=== PATIENT | female | born 1990 | race Caucasian/White ===

== ENCOUNTER 2017-03-28 11:50 | Inpatient (IN) | payer MEDICAID ==
[~2017-03-28] VITALS: Ht 167.6 cm; Wt 68.9 kg
[2017-03-28 12:30] LABS: BILIRUBIN,URINE NEGATIVE (NEGATIVE); BLOOD, URINE 2+ (NEGATIVE); COLOR,URINE YELLOW (YELLOW); LEUKOCYTE ESTERASE ,URINE NEGATIVE (NEGATIVE); NITRITE, URINE NEGATIVE (NEGATIVE); UGLUCOSE NEGATIVE (NEGATIVE)
[2017-03-28 12:56] LABS: APPEARANCE,URINE SLIGHTLY HAZY (CLEAR); RBC,URINE 3-10 (FEW) /HPF (0-5); WBC,URINE 0-5 (RARE) /HPF (0-5)
[2017-03-28 19:38] VITALS: BP 116/64
[2017-03-28] MEDS: LACTATED RINGERS 1,000 ML IV SCH (21:00)
[2017-03-28 21:03] LABS: ALBUMIN 2.6 g/dL (3.4-5.0); ANION GAP 15.2 (8-16); CARBON DIOXIDE 24.4 mmol/L (21-32); CREATININE 0.7 mg/dL (0.6-1.3); POTASSIUM 3.6 mmol/L (3.5-5.1); TOTAL BILIRUBIN 0.5 mg/dL (0.0-1.0)
[2017-03-28] MEDS ORDERED: IBUPROFEN 600 MG TAB PO PRN (21:30)
[2017-03-28] MEDS ORDERED: IBUPROFEN 600 MG TAB ONE (21:38)
[2017-03-29] MEDS: LACTATED RINGERS 1,000 ML IV SCH ×3 (02:00→13:21)
[2017-03-29] MEDS ORDERED: IBUPROFEN 600 MG TAB PO PRN (05:45)
--- NOTE | 2017-03-29 09:09 | NUR ---
PATIENT HAS BEEN SCREENED AND CATEGORIZED LOW NUTRITION RISK. PATIENT WILL BE SEEN WITHIN 7 DAYS OF ADMISSION. 04/03/[address]
[2017-03-29] MEDS ORDERED: AMPICILLIN 2,000 MG in NACL 0.9% 100 ML IV SCH (14:55)
[2017-03-29] MEDS ORDERED: AMPICILLIN 2,000 MG VIAL ONE (15:34)
[2017-03-29 16:59] LABS: APPEARANCE,URINE CLEAR (CLEAR); BILIRUBIN,URINE NEGATIVE (NEGATIVE); BLOOD, URINE 3+ (NEGATIVE); COLOR,URINE YELLOW (YELLOW); LEUKOCYTE ESTERASE ,URINE NEGATIVE (NEGATIVE); NITRITE, URINE NEGATIVE (NEGATIVE); PH,URINE 7.5 (5.0-9.0); UGLUCOSE NEGATIVE (NEGATIVE)
[2017-03-29 17:21] LABS: RBC,URINE 20-50 /HPF (0-5); WBC,URINE 0-5 (RARE) /HPF (0-5)
[2017-03-29] MEDS ORDERED: AMPICILLIN 1,000 MG VIAL ONE ×2 (19:47→23:30)
[2017-03-30] MEDS ORDERED: AMPICILLIN 1,000 MG VIAL ONE ×5 (03:59→20:32)
[2017-03-30] MEDS: AMPICILLIN 1,000 MG in NACL 0.9% 50 ML IV SCH ×5 (08:09→20:45)
[2017-03-30] MEDS: LACTATED RINGERS 1,000 ML IV SCH ×2 (08:16→16:49)
[2017-03-31] MEDS: AMPICILLIN 1,000 MG in NACL 0.9% 50 ML IV SCH ×4 (00:45→20:45)
[2017-03-31] MEDS ORDERED: AMPICILLIN 1,000 MG VIAL ONE ×6 (00:47→20:46)
[2017-03-31] MEDS: LACTATED RINGERS 1,000 ML IV SCH ×2 (00:54→10:15)
[2017-03-31] MEDS ORDERED: SODIUM 10 ML VIAL ONE (20:47)
[2017-04-01] MEDS ORDERED: AMPICILLIN 1,000 MG VIAL ONE ×4 (00:41→13:27)
[2017-04-01] MEDS: AMPICILLIN 1,000 MG in NACL 0.9% 50 ML IV SCH ×2 (08:54→13:33)
== END 2017-04-01 16:10 | disposition home or self-care (01) | DRG 566 ==
LOC: MLD 11:50 → MFCC 17:27 → OBSVTOIN 03-29 15:59
PROVIDERS: ADMIT Obstetrics & Gynecology; ATTEND Obstetrics & Gynecology
PROC: 0T9B70Z Drainage of Bladder with Drainage Device, Via Natural or Artificial Opening (ICD-10-PCS; principal; 2017-03-28)
DX: O26.892 Other specified pregnancy related conditions, second trimester (principal); N20.1 Calculus of ureter; O23.32 Infections of other parts of urinary tract in pregnancy, second trimester; O21.9 Vomiting of pregnancy, unspecified; R19.7 Diarrhea, unspecified; Z3A.24 24 weeks gestation of pregnancy
CPT/HCPCS: G0378 ×28; 36415; 51702; 76770; 76805; 80053; 81001; 96360; 96361; J0290; J7120; Q0092

== ENCOUNTER 2017-07-08 14:35 | Observation (INO) | payer MEDICAID ==
[~2017-07-08] VITALS: Ht 167.6 cm; Wt 77.6 kg
[2017-07-08 17:13] VITALS: BP 106/63
== END 2017-07-08 20:30 | disposition home or self-care (01) ==
LOC: MLD 14:35
PROVIDERS: ADMIT Obstetrics & Gynecology; ATTEND Obstetrics & Gynecology
DX: O26.893 Other specified pregnancy related conditions, third trimester (principal); R10.9 Unspecified abdominal pain; Z3A.34 34 weeks gestation of pregnancy
CPT/HCPCS: 59025; 76805; G0378; Q0092

== ENCOUNTER 2017-07-15 14:00 | Inpatient (IN) | payer MEDICAID ==
[~2017-07-15] VITALS: Ht 160 cm; Wt 78.0 kg
[2017-07-15] MEDS ORDERED: PREN-380 PO (14:55)
[2017-07-15] MEDS ORDERED: LACTATED RINGERS 1,000 ML IV SCH (14:56)
[2017-07-15] MEDS ORDERED: PROMETHAZINE 25 MG/ML VIAL IVP PRN (15:00)
[2017-07-15] MEDS ORDERED: NALBUPHINE HYDROCHLORIDE 10 MG/ML VIAL IVP PRN (15:00)
[2017-07-15] MEDS ORDERED: METHYLERGONOVINE 0.2 MG/ML AMP IM PRN (15:00)
[2017-07-15] MEDS ORDERED: CARBOPROST 250 MCG/ML AMP IM PRN (15:00)
[2017-07-15] MEDS ORDERED: OXYTOCIN 10 UNITS/ML VIAL IM SCH (15:30)
[2017-07-15 16:19] LABS: BASOPHILS # (AUTO) 0.1 K/uL (0.00-0.22); HEMOGLOBIN 13.2 g/dL (12.0-16.0); LYMPHOCYTES # (AUTO) 2.5 K/uL (2.5-16.5)
[2017-07-15 16:22] LABS: BASOPHILS % (AUTO) 0.4 % (0.0-2.0); EOSINOPHILS # (AUTO) 0.2 K/uL (0-0.4); EOSINOPHILS % (AUTO) 1.2 % (0.0-4.0); LYMPHOCYTES % (AUTO) 20.2 % (20.5-51.1); MEAN CORPUSCULAR HEMOGLOBIN 31 pg (27-31); MEAN CORPUSCULAR HGB CONC 33 g/dL (33-37); MEAN CORPUSCULAR VOLUME 94.2 fL (80-94); MONOCYTES # (AUTO) 0.8 K/uL (0.8-1.0); MONOCYTES % (AUTO) 6.2 % (1.7-9.3); NEUTROPHILS # (AUTO) 8.9 K/uL (1.8-7.7); PLATELET COUNT (AUTO) 185 K/uL (140-450); RED BLOOD CELL COUNT(AUTO) 4.25 MIL/uL (4.20-5.40); RED CELL DISTRIBUTION WIDTH 13.8 % (11.6-13.7); WHITE BLOOD COUNT (AUTO) 12.4 K/uL (4.8-10.8)
[2017-07-15 16:33] LABS: ALBUMIN 2.7 g/dL (3.4-5.0); ANION GAP 13.5 (8-16); CREATININE 0.6 mg/dL (0.6-1.3); POTASSIUM 3.5 mmol/L (3.5-5.1); TOTAL BILIRUBIN 0.5 mg/dL (0.0-1.0)
[2017-07-15 19:28] LABS: APPEARANCE,URINE CLEAR (CLEAR); BILIRUBIN,URINE NEGATIVE (NEGATIVE); BLOOD, URINE NEGATIVE (NEGATIVE); COLOR,URINE YELLOW (YELLOW); LEUKOCYTE ESTERASE ,URINE NEGATIVE (NEGATIVE); NITRITE, URINE NEGATIVE (NEGATIVE); PH,URINE 6.5 (5.0-9.0); UGLUCOSE NEGATIVE (NEGATIVE)
[2017-07-15] MEDS ORDERED: MISOPROSTOL 25 MCG TAB VG PRN (20:00)
[2017-07-15] MEDS ORDERED: OXYTOCIN 20 UNITS in LACTATED RINGERS 1,000 ML IV SCH (21:01)
[2017-07-15] MEDS ORDERED: NALBUPHINE 10 MG/ML AMP IVP PRN (21:05)
[2017-07-15] MEDS ORDERED: MISOPROSTOL 25 MCG TAB VG ONE (21:05)
[2017-07-15] MEDS ORDERED: MISOPROSTOL 25 MCG TAB ONE (21:09)
[2017-07-16] MEDS ORDERED: NALBUPHINE 10 MG/ML AMP ONE (03:53)
[2017-07-16] MEDS ORDERED: PROMETHAZINE 25 MG/ML VIAL ONE (03:53)
[2017-07-16] MEDS ORDERED: BUPIVACAINE 0.125%/NS PREMIX 250 ML ONE (05:22)
[2017-07-16] MEDS ORDERED: OXYTOCIN 20 UNITS/LR PREMIX 1,000 ML IV ONE (06:00)
[2017-07-16] MEDS ORDERED: OXYTOCIN 10 UNITS/ML VIAL ONE ×2 (06:02→07:41)
[2017-07-16] MEDS ORDERED: TERBUTALINE 1 MG/ML VIAL SUBQ ONE (07:41)
[2017-07-16] MEDS ORDERED: OXYTOCIN 20 UNITS in LACTATED RINGERS 1,000 ML IV SCH ×2 (11:18→21:01)
[2017-07-16] MEDS ORDERED: IBUPROFEN 600 MG TAB PO PRN (11:20)
[2017-07-16] MEDS ORDERED: MEASLES, MUMPS, AND RUBELLA 1 VIAL SQVAC PRN (11:20)
[2017-07-16] MEDS ORDERED: ACETAMINOPHEN 325 MG TAB PO PRN (11:20)
[2017-07-16] MEDS ORDERED: BISACODYL 5 MG TABEC PO PRN (11:20)
[2017-07-16] MEDS ORDERED: BENZOCAINE/MENTHOL 20%-0.5% 60 GM CAN TP PRN (11:20)
--- NOTE | 2017-07-17 06:36 | NUR ---
PATIENT HAS BEEN SCREENED AND CATEGORIZED LOW NUTRITION RISK. PATIENT WILL BE SEEN WITHIN 7 DAYS OF ADMISSION. 07/22/17 AMANDA PINEDO MS, RDN
[2017-07-17 07:35] LABS: BASOPHILS % (AUTO) 0.4 % (0.0-2.0); EOSINOPHILS # (AUTO) 0.1 K/uL (0-0.4); EOSINOPHILS % (AUTO) 0.5 % (0.0-4.0); HEMATOCRIT 35.6 % (36-48); HEMOGLOBIN 11.8 g/dL (12.0-16.0); LYMPHOCYTES # (AUTO) 2.5 K/uL (2.5-16.5); LYMPHOCYTES % (AUTO) 19.4 % (20.5-51.1); MEAN CORPUSCULAR HEMOGLOBIN 31 pg (27-31); MEAN CORPUSCULAR HGB CONC 33 g/dL (33-37); MEAN CORPUSCULAR VOLUME 93.7 fL (80-94); MONOCYTES # (AUTO) 0.8 K/uL (0.8-1.0); NEUTROPHILS # (AUTO) 9.4 K/uL (1.8-7.7); NEUTROPHILS % (AUTO) 73.7 % (42.2-75.2); PLATELET COUNT (AUTO) 141 K/uL (140-450); RED CELL DISTRIBUTION WIDTH 13.7 % (11.6-13.7); WHITE BLOOD COUNT (AUTO) 12.8 K/uL (4.8-10.8)
== END 2017-07-18 15:30 | disposition home or self-care (01) | DRG 560 ==
LOC: MLD 14:00 → MFCC 07-16 13:20
PROVIDERS: ADMIT Obstetrics & Gynecology; ATTEND Obstetrics & Gynecology
PROC: 10E0XZZ Delivery of Products of Conception, External Approach (ICD-10-PCS; principal; 2017-07-16)
PROC: 0KQM0ZZ Repair Perineum Muscle, Open Approach (ICD-10-PCS; 2017-07-16)
PROC: 3E0P7VZ Introduction of Hormone into Female Reproductive, Via Natural or Artificial Opening (ICD-10-PCS; 2017-07-16)
PROC: 00HU33Z Insertion of Infusion Device into Spinal Canal, Percutaneous Approach (ICD-10-PCS; 2017-07-16)
PROC: 3E0R3BZ Introduction of Anesthetic Agent into Spinal Canal, Percutaneous Approach (ICD-10-PCS; 2017-07-16)
DX: O69.1XX0 Labor and delivery complicated by cord around neck, with compression, not applicable or unspecified (principal); O70.1 Second degree perineal laceration during delivery; O89.4 Spinal and epidural anesthesia-induced headache during the puerperium; Z37.0 Single live birth; Z3A.40 40 weeks gestation of pregnancy; Z82.5 Family history of asthma and other chronic lower respiratory diseases; Z88.6 Allergy status to analgesic agent
CPT/HCPCS: 36415; 51702; 59409; 76815; 80053; 81003; 85025; 86592; 86886; 86900; 86901; J2300; J2550; J2590; J3105; J3490; J7120; Q0092